=== PATIENT | male | born 1950 ===

== ENCOUNTER → 2019-11-01 | Outpatient (CLI) | payer OTHER | LOC: CAT 13:40 | DX: Z13.6 Encounter for screening for cardiovascular disorders (principal); I25.10 Atherosclerotic heart disease of native coronary artery without angina pectoris; E78.00 Pure hypercholesterolemia, unspecified ==

== ENCOUNTER → 2019-11-01 | Outpatient (CLI) | payer OTHER, BC ==
[~2019-11-01] MED LIST: ASA81BEC PO; LOTENSIN20 MG PO; MELOXICAM15 MG PO; NORCO 10-325 T1 EACH PO; NORVASC 2.5 MG2.5 M1 PO; ROSUVASTATIN CA10 MG PO
== END ==
LOC: SJCVCIMAG 12:51
PROVIDERS: ATTEND Internal Medicine Cardiovascular Disease
DX: I65.23 Occlusion and stenosis of bilateral carotid arteries (principal); R00.1 Bradycardia, unspecified; I10 Essential (primary) hypertension; R07.9 Chest pain, unspecified; E78.5 Hyperlipidemia, unspecified; R06.09 Other forms of dyspnea; R53.83 Other fatigue; R09.89 Other specified symptoms and signs involving the circulatory and respiratory systems; Z87.891 Personal history of nicotine dependence

== ENCOUNTER → 2020-01-02 | Outpatient (CLI) | payer OTHER, BC | LOC: SJCVC 11:05 | DX: I45.10 Unspecified right bundle-branch block (principal); R00.1 Bradycardia, unspecified; I25.10 Atherosclerotic heart disease of native coronary artery without angina pectoris; E78.5 Hyperlipidemia, unspecified; I10 Essential (primary) hypertension; I65.23 Occlusion and stenosis of bilateral carotid arteries; Z90.49 Acquired absence of other specified parts of digestive tract; Z79.899 Other long term (current) drug therapy; Z87.891 Personal history of nicotine dependence; Z82.49 Family history of ischemic heart disease and other diseases of the circulatory system ==

== ENCOUNTER → 2020-01-10 | Outpatient (CLI) | payer OTHER, BC ==
[~2020-01-10] VITALS: Ht 172.7 cm; Wt 87.5 kg
--- NOTE | ~2020-01-10 | EKG ---
[facility] [place] [address] ELECTROCARDIOGRAM REPORT Name: RENITA HECK Room #: REG CL M..#: [id number] Admission: 01/10/20 Attend Phys: Neel Bui MD, Discharge: Date of : 46 Report #: [id number] THIS REPORT FOR: cc: RYLEE Stephenson family physician/PCP RYLEE - Seema family physician/PCP Ellyn Ragland MD ~ THIS REPORT FOR: //name// [facility] Test Date: 2020-01-10 Test Time: 07:23:59 Pat Name: RENITA HECK Department: Room: Gender: Clinical Data Analyst: Arsh SPRAGUE : 1950 Requested By: Neel Bui Order Number: [id number] MD: Measurements Intervals [place] Rate: 57 P: 11 MD: 154 QRS: 9 QRSD: 103 T: 47 QT: 415 QTc: 404 Interpretive Statements Sinus rhythm Atrial premature complex RSR' in V1 or V2, right VCD or RVH No previous ECG available for comparison [email or web address] By: 0723 07 Epiphany Epiphany, /EPI
[2020-01-10 07:21] VITALS: BP 154/75
[2020-01-10 07:46] LABS: HEMOGLOBIN 16.2 gm/dL (14.0-18.0); MCH 30.4 pg (26.0-34.0); MCHC 34.4 g/dL (28.0-37.0); MCV 88.4 fL (80.0-100.0); RBC 5.32 mil/uL (4.50-6.00); RDW 13.5 % (10.5-14.5); WBC 5.5 thou/uL (4.0-11.0)
[2020-01-10 07:58] LABS: CALCIUM 8.4 mg/dL (8.5-10.1); CREATININE 0.9 mg/dL (0.7-1.3)
--- NOTE | 2020-01-10 17:02 | CATHLAB ---
[facility] [place] [address] INVASIVE PROCEDURE REPORT Name: RENITA HECK Room #: REG REBECAC AdamsLaloArshLalo#: [id number] Admission: 01/10/20 Attend Phys: Neel Bui MD, Discharge: Date of : 46 Report #: [id number] THIS REPORT FOR: cc: FAM - No family physician/PCP FAM - No family physician/PCP Neel Bui MD [facility] ~ APPROVED REPORT Study performed: 01/10/2020 07:54:14 Patient Details Patient Status: Out-Patient Room #: The patient is a 69 year-old male Event Personnel Neel Bui Mine Technician, Bob Chaparro RN RN, Michaela Humphries Monitor, Josie Smith RTR, [place] [employer] Scrub Procedures Performed Art Access - R femoral artery* 49141 Initial Mod Sed Same Phys/QHP Gr5y 612398 Left Heart Cath w/or w/o Coronaries [id number] [facility] Aortogram Abdominal Peripheral Angio 626264 Hemostasis w/ Mynx Indication Chest pain Procedure Narrative The patient was brought electively to the Cardiac Catheterization Laboratory and was prepped and draped in a sterile manner. The Right Groin^ was infiltrated with 1% Lidocaine subcutaneous anesthesia. A PINNACLE 6FR Sheath #[id number] sheath was inserted into the RFA^. Coronary angiography was performed using coronary diagnostic catheters. The right coronary system was accessed and visualized with a JR 4 catheter. The left coronary system was accessed and visualized with a JL 4 catheter. The left ventricle was accessed and visualized with a Pigtail catheter. Left ventriculogram was performed in LANIER projection. An aortogram of the abdominal aorta was performed. Closure device was deployed with a 6 Fr Mynx. The patient tolerated the procedure well and there were no complications associated with the procedure. There was no hematoma. Intraoperative Conscious Sedation Sedation start time: 08:25 Case end Time: [facility] [address] [place] [address] INVASIVE PROCEDURE REPORT Name: CECILRENITA HYDE Room #: CLAUDIA Carias#: [id number] Admission: 01/10/20 Attend Phys: Neel Bui, Discharge: Date of : 46 Report #: [id number] 08:43 Fentanyl 100.0 mcg Versed 2.0 mg Fluoro Time: 1.09 minutes Dose: DAP 3064.00 cGycm2 345 mGy Contrast Type and Amount: Omnipaque 105 ml Hemodynamics The aortic pressure is 152/70 mmHg with a mean of 98 mmHg. The left ventricular pressure is 154/28 mmHg with a mean of mmHg. The left ventricular end diastolic pressure is 38 mmHg. Conclusion 1. Normal left ventricular size and systolic function EF 60% #2 abdominal aortogram revealing intact abdominal aorta no evidence of aneurysm. Renal arteries and iliac system appeared to be widely patent. #3 left main free of disease giving rise to LAD and circumflex. #4 LAD with mild diffuse irregularities a smaller attenuated vessel at the apex. No occlusive disease for intervention. Proximal calcification is noted. #5 circumflex OM nondominant there is an eccentric 50% mid circumflex lesion with a well-preserved distal vessel. #6 dominant right coronary artery with mild diffuse disease no occlusive disease is noted. Recommendations and plan: Continue aggressive risk factor modification. No indication for coronary intervention. Follow-up will be arranged. Follow discharge protocol. <ELECTRONICALLY SIGNED> By: Neel Bui MD, FACC 01/10/201699 99 99 Neel Bui MD, FACC /INF
== END | disposition home or self-care (01) ==
LOC: CATH 06:31
PROVIDERS: Internal Medicine Cardiovascular Disease
DX: R07.9 Chest pain, unspecified (principal); I25.10 Atherosclerotic heart disease of native coronary artery without angina pectoris; I10 Essential (primary) hypertension; E78.5 Hyperlipidemia, unspecified; F03.90 Unspecified dementia, unspecified severity, without behavioral disturbance, psychotic disturbance, mood disturbance, and anxiety; F41.9 Anxiety disorder, unspecified; G47.30 Sleep apnea, unspecified; M19.90 Unspecified osteoarthritis, unspecified site; Z98.890 Other specified postprocedural states; Z79.899 Other long term (current) drug therapy; Z90.49 Acquired absence of other specified parts of digestive tract; Z79.82 Long term (current) use of aspirin